=== PATIENT | male | born 1995 | race Caucasian/White ===

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

== ENCOUNTER → 2019-05-01 | Outpatient (CLI) | payer BC ==
[2019-05-01 07:48] LABS: Basophils # (A) 0.1 k/uL (0-0.2); Basophils % (A) 1 %; Eosinophils # (A) 0.1 k/uL (0-0.7); Eosinophils % (A) 1 %; HCT 46.1 % (39.0-53.0); Lymphocytes % (A) 40 %; MCH 28.6 pg (25.0-35.0); MCHC 32.5 g/dL (31.0-37.0); MCV 87.9 fL (80.0-100.0); Mean Platelet Volume 7.9; Monocytes # (A) 0.3 k/uL (0-1.0); Monocytes % (A) 6 %; Neutrophils # (A) 2.4 k/uL (1.3-7.7); Neutrophils % (A) 48 %; Platelet Count 205 k/uL (150-450); RBC 5.24 m/uL (4.30-5.90); RDW 12.3 % (11.5-15.5)
[2019-05-01 12:40] LABS: ALT 18 U/L (10-49); AST 22 U/L (14-35); African American GFR (CKD) 109.9 (60.0-200.0); Albumin/Globulin Ratio 2.74 (1.60-3.17); Alkaline Phosphatase 49 U/L (41-126); BUN/Creat Ratio 19.09 Ratio (12.00-20.00); Calcium 9.8 mg/dL (8.7-10.3); Carbon Dioxide 26.4 mmol/L (21.6-31.8); Chloride 107 mmol/L (96-109); Chol/HDL Ratio 2.29; Cholesterol 119 mg/dL (0-200); Globulin 1.9 g/dL (1.6-3.3); Glucose 85 mg/dL (70-110); Non-African American GFR(CKD) 94.8 (60.0-200.0); Potassium 4.3 mmol/L (3.5-5.5); Sodium 142 mmol/L (135-145); Total Bilirubin 0.7 mg/dL (0.2-1.2); Total Protein 7.1 g/dL (6.2-8.2); Triglycerides <50.0 mg/dL (0.0-149.0)
== END | disposition home or self-care (01) ==
LOC: LABWHC1 06:59
PROVIDERS: ATTEND Family Medicine
DX: Z00.00 Encounter for general adult medical examination without abnormal findings (principal)
CPT/HCPCS: 36415; 80053; 80061; 83036; 84443; 85025

== ENCOUNTER → 2023-12-06 | Outpatient (CLI) | payer BC ==
--- NOTE | 2023-12-06 20:16 | US ---
EXAMINATION TYPE: US abdomen complete DATE OF EXAM: 12/06/2023 COMPARISON: 05/08/14 CLINICAL INDICATION: Male, 28 years old with history of R10.9 UNSPECIFIED ABDOMINAL PAIN; epigastric and RUQ pain TECHNIQUE: Multiple sonographic images of the abdomen are obtained. FINDINGS: EXAM MEASUREMENTS: Liver Length: 14.3 cm Gallbladder Wall: 0.11 cm CBD: 0.32 cm Spleen: 10.8 cm Right Kidney: 10.9 x 5.7 x 4.5 cm Left Kidney: 12.1 x 5.9 x 5.2 cm [employer]ED [employer] NOTES: Pancreas: Obscured by bowel gas. Visualized portions within normal limits. Liver: wnl Gallbladder: wnl Evidence for sonographic Grover's sign: No CBD: wnl Spleen: wnl Right Kidney: wnl Left Kidney: wnl Upper IVC: wnl Abd Aorta: parts seen appear wnl IMPRESSION: No acute process. No evidence of gallstones or renal calculi.
== END | disposition home or self-care (01) ==
LOC: RADUSWWP 07:51
PROVIDERS: ATTEND Family Medicine
DX: R10.13 Epigastric pain (principal); R10.11 Right upper quadrant pain
CPT/HCPCS: 76700